=== PATIENT | female | born 2000 | race Caucasian/White ===

== ENCOUNTER 2018-03-15 18:41 | Emergency (ER) | payer OTHER, SELFPAY ==
[2018-03-15 18:48] VITALS: BP 104/66; PULSE 89; RESP 16; O2SAT 100
--- NOTE | 2018-03-15 18:49 | ED_ITS ---
HPI - Burn/Smoke Inhalation <ESTELLA Moreno - Last Filed: 03/15/18 22:34> General Chief complaint: Burn/Smoke Inhalation Stated complaint: BURN LEFT FOOT FROM WORK LAST NIGHT Time Seen by Provider: 03/15/18 18:49 Source: patient Mode of arrival: ambulatory Limitations: no limitations History of Present Illness HPI Narrative: 18-year-old female here for complaint of burn to her left foot. Patient said that last night she was cleaning out the [employer] at work last night with boiling water when the valve leak causing bloody water to flow over her left foot. She denies any other burn injury she denies any other concerns or complaints. She is ambulatory into the emergency room today. She states that her last tetanus was approximately 2011. Increased pain with palpation to the area. MD Complaint: burn Related Data Previous Rx's Medication Instructions Recorded hydrocodone-acetaminophen [[place]] 1 tab PO Q4-6H PRN #10 tab 03/15/18 Allergies Allergy/AdvReac Type Severity Reaction Status Date / Time Penicillins Allergy Severe Anaphylaxis Verified 03/15/18 18:48 Review of Systems <ESTELLA Moreno - Last Filed: 03/15/18 22:34> Constitutional Reports as per HPI Eyes Denies change in vision, Denies eye discharge, Denies irritation and Denies loss of vision ENT Ears, Nose, Mouth, and Throat: Denies change in voice, Denies neck pain and Denies sore throat Cardiovascular Denies chest pain, Denies irregular heart rhythm, Denies lightheadedness, Denies palpitations, Denies dyspnea, Denies dyspnea on exertion and Denies orthopnea Respiratory Denies cough, Denies dyspnea, Denies dyspnea on exertion and Denies wheezing Gastrointestinal Gastrointestinal: Denies abdominal pain, Denies change in bowel habits, Denies diarrhea, Denies nausea and Denies vomiting Genitourinary Denies hematuria, Denies flank pain, Denies urinary incontinence and Denies urinary urgency Musculoskeletal Denies neck pain Comments: Burn to the top of the left foot Integumentary/Breasts Denies pruritus, Denies erythema, Denies rash and Denies wounds Neurologic Denies confusion and Denies loss of vision Psychiatric Denies anxiety, Denies confusion, Denies depression, Denies homicidal ideation and Denies suicidal ideation Endocrine Denies palpitations Hematologic/Lymphatic Denies easy bruising Allergic/Immunologic Denies wheezing Exam <ESTELLA Moreno - Last Filed: 03/15/18 22:34> Initial Vital Signs Initial Vital Signs: Vital Signs Pulse Rate 89 03/15/18 18:48 Respiratory Rate 16 03/15/18 18:48 Blood Pressure 104/66 03/15/18 18:48 Pulse Oximetry 100 03/15/18 18:48 Const General: cooperative and well developed Nutritional Appearance: well nourished Orientation: alert, awake, oriented x3 and not confused [facility] Mouth: oral mucosae normal and moist mucous membranes Eyes Conjunctivae: conjunctivae normal Sclera: sclerae normal Pupils: PERRL EOM: EOM intact bilaterally Resp Effort & Inspection: normal respiratory effort, able to speak in complete sentences, no respiratory distress and no use of accessory muscles Auscultation: clear to auscultation bilaterally, no rales, no rhonchi and no wheezes Cardio Rate: regular rate Rhythm: regular rhythm Heart Sounds: no click, no gallops, no murmurs and no rubs Pulses: normal peripheral pulses Skin General: no rashes or lesions noted, No jaundice and No petechiae Neuro General: alert, oriented x3, gait normal and no focal motor deficits Speech: speech normal Extrem Other: Combination of a superficial and partial-thickness buenrostro to the anterior portion of the left foot and the left ankle approximately 1% of body surface area. Two large bullae to the anterior portion of the left ankle has ruptured. One bullae approximately 3 cm x 2 cm to the lateral aspect of the left foot remains intact. Distal sensation is intact. Distal pulses are intact. Full range of motion. <Alma Delia Freitas DO - Last Filed: 03/16/18 01:28> Initial Vital Signs Initial Vital Signs: Vital Signs Pulse Rate 89 03/15/18 18:48 Respiratory Rate 16 03/15/18 18:48 Blood Pressure 104/66 03/15/18 18:48 Pulse Oximetry 100 03/15/18 18:48 Course <ESTELLA Moreno - Last Filed: 03/15/18 22:34> Orders Ordered: Discontinued Medications Acetaminophen (Tylenol) 650 mg PO NOW ONE Stop: 03/15/18 20:27 Diphtheria/Tetanus/Acell Pertussis (Adacel) 0.5 ml IM .ONCE ONE Stop: 03/15/18 20:46 Last Admin: 03/15/18 20:52 Dose: 0.5 ml Vital Signs - 8 hr 03/15/18 18:48 03/15/18 20:31 03/15/18 21:27 Pulse Rate 89 66 68 Respiratory Rate 16 14 14 Blood Pressure 104/66 93/61 Blood Pressure [Left Arm] 99/60 Pulse Oximetry 100 99 99 <Alma Delia Freitas DO - Last Filed: 03/16/18 01:28> Orders Ordered: Discontinued Medications Acetaminophen (Tylenol) 650 mg PO NOW ONE Stop: 03/15/18 20:27 Diphtheria/Tetanus/Acell Pertussis (Adacel) 0.5 ml IM .ONCE ONE Stop: 03/15/18 20:46 Last Admin: 03/15/18 20:52 Dose: 0.5 ml Vital Signs - 8 hr 03/15/18 18:48 03/15/18 20:31 03/15/18 21:27 Pulse Rate 89 66 68 Respiratory Rate 16 14 14 Blood Pressure 104/66 93/61 Blood Pressure [Left Arm] 99/60 Pulse Oximetry 100 99 99 MDM - Burn/Smoke Inhalation <ESTELLA Moreno - Last Filed: 03/15/18 22:34> MDM Narrative Medical decision making narrative: Discussed case with [facility] [place] with pictures that were sent to them for evaluation. They recommended debriding the wound which was done here in the emergency room. Patient tolerated well no complications. Her wounds were dressed with bacitracin and Xeroform. Her tetanus was updated in the emergency room tonight. [facility] will call her in the next couple of days to schedule follow- up appointment for re-evaluation. She is given Xeroform bandage supplies that she can bandages daily. [id number] Tylenol Motrin as needed for any discomfort. Small amount of [place] is provided for breakthrough pain. Return emergency room for any worsening symptoms. Discharge Plan Departure Patient Disposition: Home, Self-Care Clinical Impression: Burn of left foot Discharge Date/Time: 03/15/18 21:28 Interventions: ED Discharge Assessment Last Done: 03/15/18 21:27 Instructions: DI for Buenrostro Activity Restrictions/Additional Instructions: Burn to left foot was debrided today in the emergency room it was then dressed Xeroform and bacitracin. Dress the wound daily as was done today with bacitracin and Xeroform. Tetanus was updated in the emergency room today. [facility] was contacted and they will contact you in the next couple of days to schedule follow-up appointment for re-evaluation. Use [id number] Tylenol and Motrin as needed for any discomfort. Small amount of [place] is prescribed for breakthrough pain use as directed no driving while on the [place]. For any worsening symptoms return to the emergency room. Prescriptions: New hydrocodone-acetaminophen [[place]] 5-325 mg tablet 1 tab PO Q4-6H PRN (Reason: pain) Qty: 10 RF: 0 Referrals: [facility] [Provider Group] [facility] [Provider Group] <Alma Delia Freitas DO - Last Filed: 03/16/18 01:28> Cosign ED Attending Erinature Attestation: I was immediately available in the department for consultation. Documentation has been reviewed. I agree with assessment and plan.
[2018-03-15 20:31] VITALS: BP 99/60; PULSE 66; RESP 14; O2SAT 99
[2018-03-15] MEDS: TET,DIPH,PERTUSS(ACELL),VAC/PF 0.5 ML SYRINGE IM (20:52)
[2018-03-15 21:27] VITALS: BP 93/61; PULSE 68; RESP 14; O2SAT 99
== END 2018-03-15 21:28 | disposition home or self-care (01) ==
PROVIDERS: Emergency Provider Nurse Practitioner Family
DX: T25.022A Burn of unspecified degree of left foot, initial encounter (principal); T31.0 Burns involving less than 10% of body surface; X12.XXXA Contact with other hot fluids, initial encounter; Y99.0 Civilian activity done for income or pay
CPT/HCPCS: 16020; 90471; 99282; 99283; 90715